=== PATIENT | male | born 1995 | race Caucasian/White ===

== ENCOUNTER 2018-11-03 16:22 | Inpatient (IN) | payer BC, OTHER ==
[~2018-11-03] VITALS: Ht 180.3 cm; Wt 113.0 kg
[2018-11-03] MEDS ORDERED: SOD CHLORIDE 0.9% 1,000 ML IV STA ×2 (17:10→19:03)
[2018-11-03] MEDS ORDERED: ONDANSETRON 4 MG INJ IV STA (17:10)
[2018-11-03] MEDS ORDERED: morphine 2 MG INJ IV STA (17:10)
[2018-11-03] MEDS ORDERED: ONDANSETRON 4 MG INJ IV PRN ×2 (20:30→21:00)
[2018-11-03] MEDS ORDERED: ACETAMINOPHEN 325 MG TAB PO PRN ×3 (20:30→22:30)
[2018-11-03] MEDS: SOD CHLORIDE 0.9% 1,000 ML IV SCH (21:47)
--- NOTE | 2018-11-03 21:53 | ERD ---
ER Documentation Chief Complaint Chief Complaint MULTIPLE SEIZURE WED/WEDNESDAY; SENT BY PMD FOR HIGH CK; C/O AP, NAUSEA HPI Patient is a 23-year-old male with a history of seizures who presents with abdominal pain. He has diffuse abdominal pain and back pain. He denies urinary issues. He has felt constipation recently. He said that he had a seizure this past Wednesday which was his last seizure. He has no history of renal failure but has had decreased intake recently and has had vomiting as well. He does not know the name of his primary doctor. ROS All systems reviewed and are negative except as per history of present illness. Allergies Allergies: Coded Allergies: No Known Allergy (Unverified , 11/03/18) PMhx/Soc History of Surgery: No Anesthesia Reaction: No Hx Neurological Disorder: Yes (Seizure) Hx Respiratory Disorders: No Hx Cardiac Disorders: No Hx Psychiatric Problems: No Hx Miscellaneous Medical Probl: No Hx Alcohol Use: No Hx Substance Use: No Hx Tobacco Use: No Smoking Status: Never smoker FmHx Family History: No diabetes Physical Exam Vitals Vital Signs Date Temp Pulse Resp B/P (MAP) Pulse Ox O2 O2 Flow FiO2 Time Delivery Rate 11/03/18 99.2 70 18 157/100 99 16:29 (119) Physical Exam Const: No acute distress Head: Atraumatic Eyes: Normal Conjunctiva ENT: Normal External Ears, Nose and Mouth. Neck: Full range of motion. No meningismus. Resp: Clear to auscultation bilaterally Cardio: Regular rate and rhythm, no murmurs Abd: Soft, diffuse tenderness to palpation without rebound or guarding Skin: No petechiae or rashes Back: No midline or flank tenderness Ext: No cyanosis, or edema Neur: Awake and alert Psych: Normal Mood and Affect Result Diagram: 11/03/18 1700 11/03/18 1700 Results 24 hrs Laboratory Tests Test 11/03/18 17:00 White Blood Count 8.1 10^3/ul Red Blood Count 4.34 10^6/ul Hemoglobin 12.9 g/dl Hematocrit 37.2 % Mean Corpuscular Volume 85.7 fl Mean Corpuscular Hemoglobin 29.7 pg Mean Corpuscular Hemoglobin Concent 34.7 g/dl Red Cell Distribution Width 11.9 % Platelet Count 234 10^3/UL Mean Platelet Volume 11.1 fl Immature Granulocytes % 0.600 % Neutrophils % 70.4 % Lymphocytes % 16.4 % Monocytes % 10.0 % Eosinophils % 2.1 % Basophils % 0.5 % Nucleated Red Blood Cells % 0.0 /100WBC Immature Granulocytes # 0.050 10^3/ul Neutrophils # 5.7 10^3/ul Lymphocytes # 1.3 10^3/ul Monocytes # 0.8 10^3/ul Eosinophils # 0.2 10^3/ul Basophils # 0.0 10^3/ul Nucleated Red Blood Cells # 0.0 10^3/ul Urine Color STRAW Urine Clarity CLEAR Urine pH 5.0 Urine Specific [place] 1.011 Urine Ketones NEGATIVE mg/dL Urine Nitrite NEGATIVE mg/dL Urine Bilirubin NEGATIVE mg/dL Urine Urobilinogen NEGATIVE mg/dL Urine Leukocyte Esterase NEGATIVE Hugo/ul Urine Microscopic RBC 26 /HPF Urine Microscopic WBC 4 /HPF Urine Bacteria FEW /HPF Urine Hemoglobin 2+ mg/dL Urine Glucose NEGATIVE mg/dL Urine Total Protein NEGATIVE mg/dl Sodium Level 142 mmol/L Potassium Level 4.5 mmol/L Chloride Level 108 mmol/L Carbon Dioxide Level 20 mmol/L Anion Gap 14 Blood Urea Nitrogen 34 mg/dl Creatinine 5.94 mg/dl Est Glomerular Filtrat Rate mL/min 12 mL/min Glucose Level 92 mg/dl Calcium Level 9.4 mg/dl Total Bilirubin 0.2 mg/dl Direct Bilirubin 0.00 mg/dl Indirect Bilirubin 0.2 mg/dl Aspartate Amino Transf (AST/SGOT) 61 IU/L Alanine Aminotransferase (ALT/SGPT) 52 IU/L Alkaline Phosphatase 104 IU/L Creatine Kinase 5932 IU/L Total Protein 7.9 g/dl Albumin 4.4 g/dl Globulin 3.50 g/dl Albumin/Globulin Ratio 1.25 Lipase 44 U/L Current Medications Medications Dose Sig/Mag Start Time Status Last (Trade) Ordered Route PRN Stop Time Admin Dose Reason Admin Sodium 1,000 ml @ Q1H STAT 11/03/18 DC 11/03/18 Chloride 1,000 mls/hr IV 17:10 17:25 11/03/18 18:09 Morphine 2 mg ONCE STAT 11/03/18 DC 11/03/18 Sulfate IV 17:10 17:26 (morphine) 11/03/18 17:13 Ondansetron 4 mg ONCE STAT 11/03/18 DC 11/03/18 HCl (Zofran IV 17:10 17:25 Inj) 11/03/18 17:13 Sodium 1,000 ml @ Q1H STAT 11/03/18 DC 11/03/18 Chloride 1,000 mls/hr IV 19:03 19:20 11/03/18 20:02 Procedures/MDM Patient is a 23-year-old male with a history of seizures who presents with abdo milton pain. The patient was found to have acute rhabdomyolysis with a CK level of 5900. He was found to have acute renal failure with a creatinine of 5.9. The patient will need admission to the hospital. He was given normal saline 1 L bolus. He most likely had multiple seizures leading to rhabdomyolysis which is caused his acute renal failure. Hopefully his creatinine will improve with IV fluid hydration and he will not need dialysis. He has [employer] insurance and I spoke with Dr. Esteban for admission to a medical surgical inpatient bed. Departure Diagnosis: Primary Impression: ARF (acute renal failure) Acute renal failure type: unspecified Qualified Codes: N17.9 - Acute kidney failure, unspecified Additional Impressions: Rhabdomyolysis Rhabdomyolysis type: non-traumatic Qualified Codes: M62.82 - Rhabdomyolys is Abdominal pain Abdominal location: generalized Qualified Codes: R10.84 - Generalized abdominal pain Condition: Serious GERRY RUGGIERO MD Nov 03, 2018 21:53
[2018-11-03 22:07] VITALS: BP 165/78; PULSE 67; RESP 18
[2018-11-03 22:30] VITALS: Ht 180.3 cm; Wt 113.0 kg
[2018-11-03] MEDS ORDERED: morphine 2 MG INJ IV PRN (23:00)
[2018-11-03] MEDS: morphine 2 MG INJ IV PRN (23:08)
[2018-11-03 23:30] VITALS: BP 142/78; PULSE 68; RESP 18
[2018-11-04 02:00] VITALS: BP 138/72; PULSE 72; RESP 18
[2018-11-04] MEDS: SOD CHLORIDE 0.9% 1,000 ML IV SCH ×4 (03:56→19:59)
[2018-11-04 07:51] VITALS: BP 162/86; PULSE 58; RESP 18
[2018-11-04] MEDS: CARBAMAZEPINE 200 MG TAB PO SCH ×2 (08:19→21:07)
[2018-11-04] MEDS: PAROXETINE 20 MG TAB PO SCH (08:19)
[2018-11-04 10:12] VITALS: BP 161/55; PULSE 55
[2018-11-04] MEDS: morphine 2 MG INJ IV PRN (10:49)
--- NOTE | 2018-11-04 11:01 | HP ---
DATE OF ADMISSION: 11/03/2018 CHIEF COMPLAINT: Lower back pain. HOSPITAL COURSE: A 23-year-old male with a history OF seizure disorder, had run out of his Tegretol for 1 week. The patient had multiple episodes of seizure during the weekend prior to admission. He was initially evaluated at [facility] and discharged home with antiepileptics. At that time, creatinine was 1.26. The patient developed diffuse abdominal pain and low back pain. Repeat blood test showed acute kidney injury with a BUN of 34 and creatinine of 5.94. CPK was elevated to 5932. IV fluid hydration was started following admission. Repeat urine and creatinine were 30 and 4.82 and CPK was decreased to 2948. PAST MEDICAL HISTORY: 1. Seizure disorder. 2. Chronic depression. MEDICATIONS PRIOR TO ADMISSION: 1. Tegretol 200 mg p.o. b.i.d. 2. Paxil 40 mg p.o. daily. SOCIAL HISTORY: The patient lives at home. He denies tobacco or alcohol use. He denies illicit estrellita g use. PHYSICAL EXAMINATION: GENERAL: Well-developed, well-nourished, obese male who is in no apparent distress. VITAL SIGNS: Stable. He is afebrile. HEENT: Extraocular muscles intact. Pupils are equal and reactive to light bilaterally. Sclerae are anicteric. Oropharynx is clear and moist. NECK: Supple, no JVD, no carotid bruits. LUNGS: Clear to auscultation bilaterally. CARDIAC: Regular rate and rhythm. No murmurs or gallops. ABDOMEN: Soft. Mild and diffuse tenderness to palpation. No rebound or guarding. Normoactive juan ramon l sounds. EXTREMITIES: No clubbing, cyanosis, or edema. NEUROLOGICAL: Nonfocal. IMAGING: Abdominal ultrasound showed mild hepatomegaly with fatty liver and no evidence of gallstone . CAT scan of the abdomen and pelvis showed no evidence of urolithiasis, obstructive uropathy or div erticulitis. ASSESSMENT: 1. A 23-year-old male with recurrent seizure disorder several days prior to admission. The patient ran out of his antiepileptic therapy x1 week. He must have been down on the ground for several hours . 2. Rhabdomyolysis, slowly improving. 3. Acute kidney injury due to rhabdomyolysis and dehydration, slowly improving. 4. Chronic depression, on Paxil. 5. Noncompliance with medical therapy. PLAN: 1. Admit to med/surg. Continue IV fluid hydration. Resume Tegretol and Paxil. 2. Nephrology consultation was requested. 3. I foresee full recovery of kidney function. 4. Plan of care was discussed with patient and multiple family members. I encouraged him to remain compliant with medical therapy and make sure his medications are refilled on a timely basis. Dictated By: CARLOS SINGH MD SK/NTS Conf#: [id number] DID#: [id number] CC: MATILDA HOPKINS MD; ALYSSA NANCE MD;*EndCC*
--- NOTE | 2018-11-04 11:56 | CONS ---
Assessment/Plan Assessment/Plan Assessment/Plan (Daily) 1. acute kidney injury due to ATN From acute rhabdomyolysis + prerenal azotemia 2. acute Rhabdomyolysis 3. Acute metabolic acidosis due to Rhabdo 4. recurrent breakthrough seizures at home 5. H/o seizure disorder 6. H/O Chronic depression Plan: IVF NS at 125 cc/hr, CK improving Expecting Cr to get better with IVF hydration UA showed 2+ Hb, 26 RBC consistent with Rhabdomyolysis will follow up , thanks for consultation Consultation Date/Type/Reason Admit Date/Time Nov 03, 2018 at 20:04 Date/Time of Note DATE: 11/04/18 TIME: 11:56 Hx of Present Illness 23-year-old male with a history OF seizure disorder, had run out of his Tegretol for 1 week. The patient had multiple episodes of seizure during the weekend prior to admission. He was initially evaluated at [facility] and disc harged home with antiepileptics and Cr of 1.26. ER labs showed acute kidney injury with a BUN of 34 and creatinine of 5.94. CPK was elevated to 5932. BUN/Cr 34/5.94 on admission, CK has been high, HCo3 low- Renal has been consulted for acute renal failure, metabolic acidosis, Acute rhabdomyolysis. Constitutional: poor po Eyes: no complaints ENT: no complaints Respiratory: no complaints Cardiovascular: lightheadedness Gastrointestinal: constipation, decreased appetite, nausea Genitourinary: no complaints Musculoskeletal: no complaints Skin: no complaints Neurologic: no complaints Endocrine: no complaints Lymphatic: no complaints Psychological: no complaints Immunologic: no complaints Past Medical History Medical History: other (depression, seizure disorder ) Medications Current Medications Sodium Chloride 1,000 ml @ 150 mls/hr Q6H40M IV Last administered on 11/04/18at 03:56; Admin Dose 150 MLS/HR; Start 11/03/18 at 21:00 Acetaminophen (Tylenol Tab) 650 mg Q4 PRN PO ELEVATED TEMPERATURE; Start at 21:00 Carbamazepine (Tegretol) 200 mg BID PO Last administered on 11/04/18at 08:19; Admin Dose 200 MG; Start 11/04/18 at 09:00 Paroxetine HCl (Paxil) 40 mg DAILY PO Last administered on 11/04/18at 08:19; Admin Dose 40 MG; Start 11/04/18 at 09:00 Ondansetron HCl (Zofran Inj) 4 mg Q4H PRN IV NAUSEA AND/OR VOMITING; Start 11/03/18 at 22:30 Acetaminophen (Tylenol Tab) 650 mg Q4H PRN PO MILD PAIN(1-3)OR ELEVATED TEMP; Start 11/03/18 at 22:30 Morphine Sulfate (morphine) 1 mg Q3H PRN IV PAIN LEVEL 4-7; Start 11/03/18 at 23:00 Morphine Sulfate (morphine) 4 mg Q3H PRN IV SEVERE PAIN LEVEL 7-10; Start 11/04/18 at 11:30 Allergies: Coded Allergies: No Known Allergy (Unverified , 11/03/18) Past Surgical History Past Surgical Hx: other Family History Significant Family History: no pertinent family hx Social History Alcohol Use: none Smoking Status: Never smoker Drug Use: none Exam/Review of Systems Exam Vitals Vital Signs Date Temp Pulse Resp B/P (MAP) Pulse Ox O2 O2 Flow FiO2 Time Delivery Rate 11/04/18 55 161/55 10:12 (90) 11/04/18 98.3 18 100 07:51 11/04/18 Room Air 02:00 Intake and Output 11/03/18 11/03/18 11/04/18 1515:00 23:00 07:00 IntakeIntake Total 2000 ml 1550 ml BalanceBalance 2000 ml 1550 ml Constitutional: alert Psych: no complaints Head: normocephalic Eyes: nl conjunctiva ENMT: nl external ears & nose Neck: supple Respiratory: clear to auscultation, normal air movement, diminished breath sounds Cardiovascular: regular rate and rhythm, nl pulses Gastrointestinal: soft, non-tender Musculoskeletal: nl extremities to inspection, nl gait and stance, muscle weakness Extremities: normal pulses 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, nl mental status, nl speech, nl strength Skin: nl turgor Lymph: nl lymph nodes Results Result Diagram: 11/04/18 0416 11/04/18 0416 Results 24hrs Laboratory Tests Test 11/03/18 17:00 11/04/18 04:16 White Blood Count 8.1 7.6 Red Blood Count 4.34 L 4.07 L Hemoglobin 12.9 L 11.9 L Hematocrit 37.2 L 35.3 L Mean Corpuscular Volume 85.7 86.7 Mean Corpuscular Hemoglobin 29.7 29.2 Mean Corpuscular Hemoglobin Concent 34.7 33.7 Red Cell Distribution Width 11.9 12.0 Platelet Count 234 200 Mean Platelet Volume 11.1 H 11.0 H Immature Granulocytes % 0.600 H 0.400 Neutrophils % 70.4 62.9 Lymphocytes % 16.4 22.4 Monocytes % 10.0 11.2 H Eosinophils % 2.1 2.6 Basophils % 0.5 0.5 Nucleated Red Blood Cells % 0.0 0.0 Immature Granulocytes # 0.050 H 0.030 Neutrophils # 5.7 4.8 Lymphocytes # 1.3 1.7 Monocytes # 0.8 0.9 Eosinophils # 0.2 0.2 Basophils # 0.0 0.0 Nucleated Red Blood Cells # 0.0 0.0 Urine Color STRAW Urine Clarity CLEAR Urine pH 5.0 Urine Specific [place] 1.011 Urine Ketones NEGATIVE Urine Nitrite NEGATIVE Urine Bilirubin NEGATIVE Urine Urobilinogen NEGATIVE Urine Leukocyte Esterase NEGATIVE Urine Microscopic RBC 26 H Urine Microscopic WBC 4 Urine Bacteria FEW A Urine Hemoglobin 2+ H Urine Glucose NEGATIVE Urine Total Protein NEGATIVE Sodium Level 142 143 Potassium Level 4.5 4.5 Chloride Level 108 114 H Carbon Dioxide Level 20 L 20 L Anion Gap 14 H 9 # Blood Urea Nitrogen 34 H 30 H Creatinine 5.94 H 4.82 #H Est Glomerular Filtrat Rate mL/min 12 L 15 L Glucose Level 92 91 Calcium Level 9.4 8.6 Total Bilirubin 0.2 0.3 Direct Bilirubin 0.00 0.00 Indirect Bilirubin 0.2 0.3 Aspartate Amino Transf (AST/SGOT) 61 H 57 H Alanine Aminotransferase (ALT/SGPT) 52 49 Alkaline Phosphatase 104 83 Creatine Kinase 5932 H 2948 #H Total Protein 7.9 6.8 # Albumin 4.4 3.8 Globulin 3.50 H Albumin/Globulin Ratio 1.25 Lipase 44 Medications Medication Current Medications Sodium Chloride 1,000 ml @ 150 mls/hr Q6H40M IV Last administered on 11/04/18at 03:56; Admin Dose 150 MLS/HR; Start 11/03/18 at 21:00 Acetaminophen (Tylenol Tab) 650 mg Q4 PRN PO ELEVATED TEMPERATURE; Start 11/03/18 at 21:00 Carbamazepine (Tegretol) 200 mg BID PO Last administered on 11/04/18at 08:19; Admin Dose 200 MG; Start 11/04/18 at 09:00 Paroxetine HCl (Paxil) 40 mg DAILY PO Last administered on 11/04/18at 08:19; A dmin Dose 40 MG; Start 11/04/18 at 09:00 Ondansetron HCl (Zofran Inj) 4 mg Q4H PRN IV NAUSEA AND/OR VOMITING; Start 11/03/18 at 22:30 Acetaminophen (Tylenol Tab) 650 mg Q4H PRN PO MILD PAIN(1-3)OR ELEVATED TEMP; Start 11/03/18 at 22:30 Morphine Sulfate (morphine) 1 mg Q3H PRN IV PAIN LEVEL 4-7; Start 11/03/18 at 23:00 Morphine Sulfate (morphine) 4 mg Q3H PRN IV SEVERE PAIN LEVEL 7-10; Start at 11:30 ALYSSA NANCE MD Nov 04, 2018 11:56
[2018-11-04] MEDS ORDERED: hydrALAzine 20 MG INJ IV PRN (12:00)
[2018-11-04] MEDS: morphine 4 MG/ML VIAL IV PRN ×4 (12:01→21:40)
[2018-11-04 14:41] VITALS: BP 131/89; PULSE 69; RESP 18
[2018-11-04] MEDS ORDERED: ZOLPIDEM 5 MG TAB PO PRN (18:30)
[2018-11-04 20:31] VITALS: BP 144/82; PULSE 63; RESP 20
[2018-11-05] VITALS (7 sets, daily range): BP systolic 137–175; BP diastolic 65–82; PULSE 50–77; RESP 16–18
[2018-11-05] MEDS: morphine 4 MG/ML VIAL IV PRN ×6 (00:36→23:12)
[2018-11-05] MEDS: SOD CHLORIDE 0.9% 1,000 ML IV SCH ×3 (04:23→23:12)
[2018-11-05] MEDS: ONDANSETRON 4 MG INJ IV PRN ×4 (04:30→22:54)
[2018-11-05] MEDS: CARBAMAZEPINE 200 MG TAB PO SCH ×2 (08:54→20:17)
[2018-11-05] MEDS: PAROXETINE 20 MG TAB PO SCH (08:55)
--- NOTE | 2018-11-05 11:32 | CONS ---
Assessment/Plan Assessment/Plan Assessment/Plan (Daily) 1. acute kidney injury due to ATN From acute rhabdomyolysis + prerenal azotemia 2. acute Rhabdomyolysis 3. Acute metabolic acidosis due to Rhabdo 4. recurrent breakthrough seizures at home 5. H/o seizure disorder 6. H/O Chronic depression Plan: IVF NS at 125 cc/hr, CK improving - 1218 today Cr trended down to 37/2.45 - better with IVF hydration UA showed 2+ Hb, 26 RBC consistent with Rhabdomyolysis will follow up , thanks for consultation Patient seen in collaboration with Dr Adi Goel Consultation Date/Type/Reason Admit Date/Time Nov 03, 2018 at 20:04 Initial Consult Date Type of Consult NEPHROLOGY Reason for Consultation SARI Date/Time of Note DATE: 11/05/18 TIME: 11:30 24 HR Interval Summary Free Text/Dictation NAD Afebrile feels better Cr trended down to 37/2.45 UO- x1 void as recorded; patient stated he voids well; denies any dysuria Family at bed side- all Qs answered no events overnight dw staff Constitutional: requiring IVF Exam/Review of Systems Exam Vitals Vital Signs Date Temp Pulse Resp B/P (MAP) Pulse Ox O2 O2 Flow FiO2 Time Delivery Rate 11/05/18 97.8 50 18 169/76 98 Room Air 08:58 (107) Intake and Output 11/04/18 11/04/18 11/05/18 1515:00 23:00 07:00 IntakeIntake Total 850 ml 1000 ml 1400 ml BalanceBalance 850 ml 1000 ml 1400 ml Constitutional: alert, oriented, well developed Psych: nl mood/affect Head: normocephalic Eyes: nl lids, nl sclera ENMT: nl external ears & nose Neck: non-tender Respiratory: clear to auscultation Cardiovascular: nl pulses, other (s1s2) Gastrointestinal: soft, non-tender Musculoskeletal: nl extremities to inspection Extremities: normal pulses Neurological: nl speech, other (alert/responsive) Skin: nl turgor Results Result Diagram: 11/04/18 0416 11/05/18 0437 Results 24hrs Laboratory Tests Test 11/05/18 04:36 11/05/18 04:37 Uric Acid 7.4 Sodium Level 144 Potassium Level 4.6 Chloride Level 111 H Carbon Dioxide Level 23 Anion Gap 10 Blood Urea Nitrogen 27 H Creatinine 3.45 #H Est Glomerular Filtrat Rate mL/min 22 L Glucose Level 84 Calcium Level 9.2 Creatine Kinase 1218 #H Creatine Kinase Index 0.0 Creatinine Kinase MB (Mass) 0.60 Troponin I < 0.012 Medications Medication Current Medications Sodium Chloride 1,000 ml @ 125 mls/hr Q8H IV Last administered on 11/05/18 04:23; Admin Dose 125 MLS/HR; Start 11/03/18 at 21:00 Acetaminophen (Tylenol Tab) 650 mg Q4 PRN PO ELEVATED TEMPERATURE; Start 11/03/18 at 21:00 Carbamazepine (Tegretol) 200 mg BID PO Last administered on 11/05/18 08:54; Admin Dose 200 MG; Start 11/04/18 at 09:00 Paroxetine HCl (Paxil) 40 mg DAILY PO Last administered on 11/05/18 08:55; Admin Dose 40 MG; Start 11/04/18 at 09:00 Ondansetron HCl (Zofran Inj) 4 mg Q4H PRN IV NAUSEA AND/OR VOMITING Last administered on 11/05/18 04:30; Admin Dose 4 MG; Start 11/03/18 at 22:30 Acetaminophen (Tylenol Tab) 650 mg Q4H PRN PO MILD PAIN(1-3)OR ELEVATED TEMP; Start 11/03/18 at 22:30 Morphine Sulfate (morphine) 1 mg Q3H PRN IV PAIN LEVEL 4-7; Start 11/03/18 at 23:00 Morphine Sulfate (morphine) 4 mg Q3H PRN IV SEVERE PAIN LEVEL 7-10 Last administered on 11/05/18 04:28; Admin Dose 4 MG; Start 11/04/18 at 11:30 Hydralazine HCl (Apresoline) 10 mg Q4H PRN IV SBP more than 150 mm hg ; Start 11/04/18 at 12:00 Zolpidem Tartrate (Ambien) 5 mg HS PRN PO INSOMNIA; Start 11/04/18 at 18:30 MIHAI MEYER Nov 05, 2018 11:32
--- NOTE | 2018-11-05 11:57 | PN ---
Date/Time of Note Date/Time of Note DATE: 11/05/18 TIME: 11:55 Assessment/Plan VTE Prophylaxis Risk score (from Nsg)>0 risk: 1 SCD applied (from Nsg): Yes Pharmacological prophylaxis: other Lines/Catheters IV Catheter Type (from Nrsg): Peripheral IV Assessment/Plan Assessment/Plan 1. renal: acute renal failure, presumed related to rhabdo and pre-renal, cont ivf, will recheck ua (b) r/o urinary retention, check us 2. seizure disorder, cont current Result Diagram: 11/04/18 0416 11/05/18 0437 Results 24hrs Laboratory Tests Test 11/05/18 04:36 11/05/18 04:37 Uric Acid 7.4 Sodium Level 144 Potassium Level 4.6 Chloride Level 111 H Carbon Dioxide Level 23 Anion Gap 10 Blood Urea Nitrogen 27 H Creatinine 3.45 #H Est Glomerular Filtrat Rate mL/min 22 L Glucose Level 84 Calcium Level 9.2 Creatine Kinase 1218 #H Creatine Kinase Index 0.0 Creatinine Kinase MB (Mass) 0.60 Troponin I < 0.012 Subjective 24 Hr Interval Summary Free Text/Dictation not eating well, no oob Exam/Review of Systems Exam Vitals Vital Signs Date Temp Pulse Resp B/P (MAP) Pulse Ox O2 O2 Flow FiO2 Time Delivery Rate 11/05/18 97.8 50 18 169/76 98 Room Air 08:58 (107) Intake and Output 11/04/18 11/04/18 11/05/18 1515:00 23:00 07:00 IntakeIntake Total 850 ml 1000 ml 1400 ml BalanceBalance 850 ml 1000 ml 1400 ml Exam nad, ctab, rrr, soft tender in suprapubic area Results Results 24hrs Laboratory Tests Test 11/05/18 04:36 11/05/18 04:37 Uric Acid 7.4 Sodium Level 144 Potassium Level 4.6 Chloride Level 111 H Carbon Dioxide Level 23 Anion Gap 10 Blood Urea Nitrogen 27 H Creatinine 3.45 #H Est Glomerular Filtrat Rate mL/min 22 L Glucose Level 84 Calcium Level 9.2 Creatine Kinase 1218 #H Creatine Kinase Index 0.0 Creatinine Kinase MB (Mass) 0.60 Troponin I < 0.012 Medications Medication Current Medications Sodium Chloride 1,000 ml @ 125 mls/hr Q8H IV Last administered on 11/05/18at 04:23; Admin Dose 125 MLS/HR; Start 11/03/18 at 21:00 Acetaminophen (Tylenol Tab) 650 mg Q4 PRN PO ELEVATED TEMPERATURE; Start 11/03/18 at 21:00 Carbamazepine (Tegretol) 200 mg BID PO Last administered on 11/05/18at 08:54; Admin Dose 200 MG; Start 11/04/18 at 09:00 Paroxetine HCl (Paxil) 40 mg DAILY PO Last administered on 11/05/18at 08:55; Admin Dose 40 MG; Start 11/04/18 at 09:00 Ondansetron HCl (Zofran Inj) 4 mg Q4H PRN IV NAUSEA AND/OR VOMITING Last administered on 11/05/18at 04:30; Admin Dose 4 MG; Start 11/03/18 at 22:30 Acetaminophen (Tylenol Tab) 650 mg Q4H PRN PO MILD PAIN(1-3)OR ELEVATED TEMP; Start 11/03/18 at 22:30 Morphine Sulfate (morphine) 1 mg Q3H PRN IV PAIN LEVEL 4-7; Start 11/03/18 at 23:00 Morphine Sulfate (morphine) 4 mg Q3H PRN IV SEVERE PAIN LEVEL 7-10 Last administered on 11/05/18at 11:39; Admin Dose 4 MG; Start 11/04/18 at 11:30 Hydralazine HCl (Apresoline) 10 mg Q4H PRN IV SBP more than 150 mm hg ; Start 11/04/18 at 12:00 Zolpidem Tartrate (Ambien) 5 mg HS PRN PO INSOMNIA; Start 11/04/18 at 18:30 CHANCE ELLSWORTH MD Nov 05, 2018 11:57
[2018-11-06 02:09] VITALS: BP 141/75; PULSE 56; RESP 17
[2018-11-06] MEDS: morphine 4 MG/ML VIAL IV PRN ×5 (03:30→23:58)
[2018-11-06] MEDS: SOD CHLORIDE 0.9% 1,000 ML IV SCH ×2 (07:23→15:49)
[2018-11-06 07:39] VITALS: BP 145/85; PULSE 56; RESP 18
[2018-11-06] MEDS: PAROXETINE 20 MG TAB PO SCH (09:10)
[2018-11-06] MEDS: CARBAMAZEPINE 200 MG TAB PO SCH ×2 (09:10→19:57)
--- NOTE | 2018-11-06 09:49 | CONS ---
Assessment/Plan Assessment/Plan Assessment/Plan (Daily) 1. acute kidney injury due to ATN From acute rhabdomyolysis + prerenal azotemia 2. acute Rhabdomyolysis 3. Acute metabolic acidosis due to Rhabdo 4. recurrent breakthrough seizures at home 5. H/o seizure disorder 6. H/O Chronic depression Plan: IVF NS at 125 cc/hr, CK improving - 1218 today Cr trended down to 26/2.8 - with IVF hydration UO 2.7L/24 Hrs UA showed 2+ Hb, 26 RBC consistent with Rhabdomyolysis will follow up , thanks for consultation Patient seen in collaboration with Dr Adi Goel Consultation Date/Type/Reason Admit Date/Time Nov 03, 2018 at 20:04 Initial Consult Date Type of Consult NEPHROLOGY Date/Time of Note DATE: 11/06/18 TIME: 09:49 24 HR Interval Summary Free Text/Dictation NAD Afebrile feels better UO- 2.7 L/24 hrs Cr trended down to 26/2.85 Family at bed side- all Qs answered no events overnight dw staff Constitutional: requiring IVF Detailed Summary Eyes: no complaints ENT: no complaints Respiratory: no complaints Cardiovascular: no complaints Gastrointestinal: no complaints Genitourinary: no complaints Musculoskeletal: no complaints Skin: no complaints Neurologic: no complaints Endocrine: no complaints Lymphatic: no complaints Psychological: nl mood/affect Immunologic: no complaints Exam/Review of Systems Exam Vitals Vital Signs Date Temp Pulse Resp B/P (MAP) Pulse Ox O2 O2 Flow FiO2 Time Delivery Rate 11/06/18 98.3 56 18 145/85 99 07:39 (105) 11/05/18 Room Air 18:37 Intake and Output 11/05/18 11/05/18 11/06/18 1515:00 23:00 07:00 IntakeIntake Total 1700 ml 1920 ml 1350 ml OutputOutput Total 1600 ml 1100 ml BalanceBalance 1700 ml 320 ml 250 ml Constitutional: alert, oriented, well developed Psych: nl mood/affect Head: normocephalic Eyes: nl lids, nl sclera ENMT: nl external ears & nose Neck: non-tender Respiratory: clear to auscultation Cardiovascular: nl pulses, other (S1S2) Gastrointestinal: soft, non-tender Musculoskeletal: nl extremities to inspection Extremities: normal pulses Neurological: nl mental status, nl speech Skin: nl turgor Lymph: nontender Results Result Diagram: 11/06/18 0430 11/06/18 0430 Results 24hrs Laboratory Tests Test 11/05/18 12:00 11/06/18 04:30 Urine Color COLORLESS Urine Clarity CLEAR Urine pH 5.0 Urine Specific [place] 1.005 Urine Ketones TRACE Urine Nitrite NEGATIVE Urine Bilirubin NEGATIVE Urine Urobilinogen NEGATIVE Urine Leukocyte Esterase NEGATIVE Urine Microscopic RBC 2-5 Urine Squamous Epithelial Cells FEW Urine Bacteria FEW Urine Hemoglobin 2+ H Urine Glucose NEGATIVE Urine Total Protein NEGATIVE White Blood Count 8.4 Red Blood Count 4.17 L Hemoglobin 12.1 L Hematocrit 37.3 L Mean Corpuscular Volume 89.4 Mean Corpuscular Hemoglobin 29.0 Mean Corpuscular Hemoglobin Concent 32.4 Red Cell Distribution Width 12.1 Platelet Count 200 Mean Platelet Volume 10.8 H Immature Granulocytes % 0.500 H Neutrophils % 69.6 Lymphocytes % 18.2 Monocytes % 8.6 Eosinophils % 2.6 Basophils % 0.5 Nucleated Red Blood Cells % 0.0 Immature Granulocytes # 0.040 H Neutrophils # 5.8 Lymphocytes # 1.5 Monocytes # 0.7 Eosinophils # 0.2 Basophils # 0.0 Nucleated Red Blood Cells # 0.0 Sodium Level 142 Potassium Level 4.5 Chloride Level 109 Carbon Dioxide Level 24 Anion Gap 9 Blood Urea Nitrogen 26 H Creatinine 2.85 H Est Glomerular Filtrat Rate mL/min 28 L Glucose Level 92 Calcium Level 9.4 Carbamazepine (Tegretol) Level 8.4 Medications Medication Current Medications Sodium Chloride 1,000 ml @ 125 mls/hr Q8H IV Last administered on 11/06/18at 07:23; Admin Dose 125 MLS/HR; Start 11/03/18 at 21:00 Acetaminophen (Tylenol Tab) 650 mg Q4 PRN PO ELEVATED TEMPERATURE Last administered on 11/06/18 09:12; Admin Dose 650 MG; Start 11/03/18 at 21:00 Carbamazepine (Tegretol) 200 mg BID PO Last administered on 11/06/18 09:10; Admin Dose 200 MG; Start 11/04/18 at 09:00 Paroxetine HCl (Paxil) 40 mg DAILY PO Last administered on 11/06/18 09:10; Admin Dose 40 MG; Start 11/04/18 at 09:00 Ondansetron HCl (Zofran Inj) 4 mg Q4H PRN IV NAUSEA AND/OR VOMITING Last administered on 11/05/18at 22:54; Admin Dose 4 MG; Start 11/03/18 at 22:30 Acetaminophen (Tylenol Tab) 650 mg Q4H PRN PO MILD PAIN(1-3)OR ELEVATED TEMP; Start 11/03/18 at 22:30 Morphine Sulfate (morphine) 1 mg Q3H PRN IV PAIN LEVEL 4-7; Start 11/03/18 at 23:00 Morphine Sulfate (morphine) 4 mg Q3H PRN IV SEVERE PAIN LEVEL 7-10 Last administered on 11/06/18at 03:30; Admin Dose 4 MG; Start 11/04/18 at 11:30 Hydralazine HCl (Apresoline) 10 mg Q4H PRN IV SBP more than 150 mm hg Last administered on 11/05/18at 17:27; Admin Dose 10 MG; Start 11/04/18 at 12:00 Zolpidem Tartrate (Ambien) 5 mg HS PRN PO INSOMNIA; Start 11/04/18 at 18:30 MIHAI MEYER Nov 06, 2018 09:49
[2018-11-06] MEDS: ONDANSETRON 4 MG INJ IV PRN ×2 (10:12→20:01)
--- NOTE | 2018-11-06 12:26 | PN ---
Date/Time of Note Date/Time of Note DATE: 11/06/18 TIME: 12:23 Assessment/Plan VTE Prophylaxis Risk score (from Ns)>0 risk: 1 SCD applied (from Ns): Yes Pharmacological prophylaxis: NA/contraindicated Pharm contraindication: surgical contra, other Lines/Catheters IV Catheter Type (from Nrs): Peripheral IV Urinary Cath still in place: No Assessment/Plan Assessment/Plan 1. acute renal failure, resolving, cont to observe, anticipate d./c q1-2 days 2. seizure disorder, therapeutic carbamazepine level Result Diagram: 11/06/1842911/06/18429 Results 24hrs Laboratory Tests Test 11/06/18 04:30 White Blood Count 8.4 Red Blood Count 4.17 L Hemoglobin 12.1 L Hematocrit 37.3 L Mean Corpuscular Volume 89.4 Mean Corpuscular Hemoglobin 29.0 Mean Corpuscular Hemoglobin Concent 32.4 Red Cell Distribution Width 12.1 Platelet Count 200 Mean Platelet Volume 10.8 H Immature Granulocytes % 0.500 H Neutrophils % 69.6 Lymphocytes % 18.2 Monocytes % 8.6 Eosinophils % 2.6 Basophils % 0.5 Nucleated Red Blood Cells % 0.0 Immature Granulocytes # 0.040 H Neutrophils # 5.8 Lymphocytes # 1.5 Monocytes # 0.7 Eosinophils # 0.2 Basophils # 0.0 Nucleated Red Blood Cells # 0.0 Sodium Level 142 Potassium Level 4.5 Chloride Level 109 Carbon Dioxide Level 24 Anion Gap 9 Blood Urea Nitrogen 26 H Creatinine 2.85 H Est Glomerular Filtrat Rate mL/min 28 L Glucose Level 92 Calcium Level 9.4 Carbamazepine (Tegretol) Level 8.4 Subjective 24 Hr Interval Summary Free Text/Dictation some pain at injection sites ambulating to toilet, none in hallways Exam/Review of Systems Exam Vitals Vital Signs Date Temp Pulse Resp B/P (MAP) Pulse Ox O2 O2 Flow FiO2 Time Delivery Rate 11/06/18 98.3 56 18 145/85 99 07:39 (105) 11/05/18 Room Air 18:37 Intake and Output 11/05/18 11/05/18 11/06/18 1515:00 23:00 07:00 IntakeIntake Total 1700 ml 1920 ml 1350 ml OutputOutput Total 1600 ml 1100 ml BalanceBalance 1700 ml 320 ml 250 ml Exam nad ctab, nmin tenderness Results Results 24hrs Laboratory Tests Test 11/06/18 04:30 White Blood Count 8.4 Red Blood Count 4.17 L Hemoglobin 12.1 L Hematocrit 37.3 L Mean Corpuscular Volume 89.4 Mean Corpuscular Hemoglobin 29.0 Mean Corpuscular Hemoglobin Concent 32.4 Red Cell Distribution Width 12.1 Platelet Count 200 Mean Platelet Volume 10.8 H Immature Granulocytes % 0.500 H Neutrophils % 69.6 Lymphocytes % 18.2 Monocytes % 8.6 Eosinophils % 2.6 Basophils % 0.5 Nucleated Red Blood Cells % 0.0 Immature Granulocytes # 0.040 H Neutrophils # 5.8 Lymphocytes # 1.5 Monocytes # 0.7 Eosinophils # 0.2 Basophils # 0.0 Nucleated Red Blood Cells # 0.0 Sodium Level 142 Potassium Level 4.5 Chloride Level 109 Carbon Dioxide Level 24 Anion Gap 9 Blood Urea Nitrogen 26 H Creatinine 2.85 H Est Glomerular Filtrat Rate mL/min 28 L Glucose Level 92 Calcium Level 9.4 Carbamazepine (Tegretol) Level 8.4 Medications Medication Current Medications Sodium Chloride 1,000 ml @ 125 mls/hr Q8H IV Last administered on 11/06/18 07:23; Admin Dose 125 MLS/HR; Start 11/03/18 at 21:00 Acetaminophen (Tylenol Tab) 650 mg Q4 PRN PO ELEVATED TEMPERATURE Last administered on 11/06/18 09:12; Admin Dose 650 MG; Start 11/03/18 at 21:00 Carbamazepine (Tegretol) 200 mg BID PO Last administered on 11/06/18 09:10; Admin Dose 200 MG; Start 11/04/18 at 09:00 Paroxetine HCl (Paxil) 40 mg DAILY PO Last administered on 11/06/18 09:10; Admin Dose 40 MG; Start 11/04/18 at 09:00 Ondansetron HCl (Zofran Inj) 4 mg Q4H PRN IV NAUSEA AND/OR VOMITING Last administered on 11/06/18 10:12; Admin Dose 4 MG; Start 11/03/18 at 22:30 Acetaminophen (Tylenol Tab) 650 mg Q4H PRN PO MILD PAIN(1-3)OR ELEVATED TEMP; Start 11/03/18 at 22:30 Morphine Sulfate (morphine) 1 mg Q3H PRN IV PAIN LEVEL 4-7; Start 11/03/18 at 23:00 Morphine Sulfate (morphine) 4 mg Q3H PRN IV SEVERE PAIN LEVEL 7-10 Last administered on 11/06/18at 10:12; Admin Dose 4 MG; Start 11/04/18 at 11:30 Hydralazine HCl (Apresoline) 10 mg Q4H PRN IV SBP more than 150 mm hg Last administered on 11/05/18at 17:27; Admin Dose 10 MG; Start 11/04/18 at 12:00 Zolpidem Tartrate (Ambien) 5 mg HS PRN PO INSOMNIA; Start 11/04/18 at 18:30 CHANCE ELLSWORTH MD Nov 06, 2018 12:25
[2018-11-06 14:07] VITALS: BP 148/67; PULSE 76; RESP 18
[2018-11-06 20:57] VITALS: BP 141/83; PULSE 78; RESP 18
[2018-11-07 01:54] VITALS: BP 137/73; PULSE 61; RESP 18
[2018-11-07 07:39] VITALS: BP 126/77; PULSE 74; RESP 18
[2018-11-07] MEDS: PAROXETINE 20 MG TAB PO SCH (09:08)
[2018-11-07] MEDS: CARBAMAZEPINE 200 MG TAB PO SCH (09:08)
[2018-11-07] MEDS ORDERED: PARO-37 PO (10:45)
[2018-11-07] MEDS ORDERED: CARB200T3 PO (10:45)
--- NOTE | 2018-11-07 10:46 | PDOCDIS ---
Discharge Instructions CONDITION [id number] Patient Condition: [id number] Good HOME CARE INSTRUCTIONS: [id number] Diet Instructions: [id number] Regular ACTIVITY: [id number] Activity Restrictions: [id number] No Restrictions FOLLOW UP/APPOINTMENTS Follow-up Plan pcp [address] Goel 1 week CARLOS SINGH MD Nov 07, 2018 10:46
[2018-11-07] MEDS: ONDANSETRON 4 MG INJ IV PRN (10:54)
--- NOTE | 2018-11-07 11:46 | CONS ---
Assessment/Plan Assessment/Plan Assessment/Plan (Daily) 1. acute kidney injury due to ATN From acute rhabdomyolysis + prerenal azotemia 2. acute Rhabdomyolysis 3. Acute metabolic acidosis due to Rhabdo 4. recurrent breakthrough seizures at home 5. H/o seizure disorder 6. H/O Chronic depression Plan: BUn/Cr improved to 22/2.33, BP stable, K normal, ok to d/c follow up with me in clinic in 1-2 week after d/ c Consultation Date/Type/Reason Admit Date/Time Nov 03, 2018 at 20:04 Initial Consult Date Date/Time of Note DATE: 11/07/18 TIME: 11:45 Exam/Review of Systems Exam Vitals Vital Signs Date Temp Pulse Resp B/P (MAP) Pulse Ox O2 O2 Flow FiO2 Time Delivery Rate 11/07/18 98.0 74 18 126/77 96 Room Air 07:39 (93) Intake and Output 11/06/18 11/06/18 11/07/18 1515:00 23:00 07:00 IntakeIntake Total 250 ml 1200 ml 1000 ml OutputOutput Total 200 ml 200 ml BalanceBalance 50 ml 1000 ml 1000 ml Results Result Diagram: 11/06/18 0430 11/07/18 0421 Results 24hrs Laboratory Tests Test 11/07/18 04:21 Sodium Level 143 Potassium Level 4.4 Chloride Level 106 Carbon Dioxide Level 25 Anion Gap 12 Blood Urea Nitrogen 22 H Creatinine 2.33 H Est Glomerular Filtrat Rate mL/min 35 L Glucose Level 98 Calcium Level 9.8 Medications Medication Current Medications Acetaminophen (Tylenol Tab) 650 mg Q4 PRN PO ELEVATED TEMPERATURE Last administered on 11/06/18at 09:12; Admin Dose 650 MG; Start 11/03/18 at 21:00 Carbamazepine (Tegretol) 200 mg BID PO Last administered on 11/07/18at 09:08; Admin Dose 200 MG; Start 11/04/18 at 09:00 Paroxetine HCl (Paxil) 40 mg DAILY PO Last administered on 11/07/18at 09:08; Admin Dose 40 MG; Start 11/04/18 at 09:00 Ondansetron HCl (Zofran Inj) 4 mg Q4H PRN IV NAUSEA AND/OR VOMITING Last administered on 11/07/18at 10:54; Admin Dose 4 MG; Start 11/03/18 at 22:30 Acetaminophen (Tylenol Tab) 650 mg Q4H PRN PO MILD PAIN(1-3)OR ELEVATED TEMP; Start 11/03/18 at 22:30 Morphine Sulfate (morphine) 1 mg Q3H PRN IV PAIN LEVEL 4-7; Start 11/03/18 at 23:00 Morphine Sulfate (morphine) 4 mg Q3H PRN IV SEVERE PAIN LEVEL 7-10 Last administered on 11/06/18at 23:58; Admin Dose 4 MG; Start 11/04/18 at 11:30 Hydralazine HCl (Apresoline) 10 mg Q4H PRN IV SBP more than 150 mm hg Last administered on 11/05/18at 17:27; Admin Dose 10 MG; Start 11/04/18 at 12:00 Zolpidem Tartrate (Ambien) 5 mg HS PRN PO INSOMNIA; Start 11/04/18 at 18:30 ALYSSA NANCE MD Nov 07, 2018 11:45
[2018-11-07 15:30] VITALS: BP 130/89; PULSE 77; RESP 18
--- NOTE | 2018-11-07 17:08 | DS ---
DATE OF ADMISSION: 11/03/2018 DATE OF DISCHARGE: 11/07/2018 DISCHARGE DIAGNOSES: 1. a 23-year-old male with acute on chronic kidney injury. 2. Stage III chronic kidney disease. 3. Rhabdomyolysis. 4. Recurrent Seizure disorder due to medication noncompliance. 5. Chronic depression. HOSPITAL COURSE: A 23-year-old male with a long history of seizure disorder, on Tegretol, presented to emergency room with complaint of low back pain and abdominal discomfort. The patient was diagnos ed with acute kidney injury and rhabdomyolysis. The patient had multiple episodes of seizures the we ekend prior to admission. He was previously on Tegretol and ran out of his medication for 1 week. T he patient failed to refill his medication which led to recurrent seizures. Initial evaluation revea led a creatinine kinase of 5900 with a BUN of 34 and creatinine of 5.94. The patient received IV flu id hydration for 4 days. BUN and creatinine improved to 22 and 2.33. I believe there is a component of chronic kidney disease. The patient is in a stable condition for discharge. He was encouraged t o increase fluid intake. I gave him prescriptions for Tegretol and paroxetine Patient will follow up with PCP and Dr. Nance as outpatient. Renal function needs to be monitored as an outpatient. MEDICATIONS ON DISCHARGE: 1. Tegretol 200 mg p.o. b.i.d. 2. Paroxetine 40 mg p.o. daily. FOLLOWUP: 1. Follow up with PCP in 1 week. 2. Follow up with Dr. Nance, in 1 week. Dictated By: CARLOS FERRER/ABHISHEK Conf#: [id number] DID#: [id number] CC: MATILDA HOPKINS MD; ALYSSA NANCE MD;*EndCC*
[2018-11-08] MEDS ORDERED: ONDA8TAB83 PO (04:32)
[2018-11-08] MEDS ORDERED: NAPR-688 PO (04:32)
== END 2018-11-07 15:30 | disposition home or self-care (01) | DRG 100 ==
LOC: FTE 16:22 → MS1 20:04
PROVIDERS: ADMIT Internal Medicine; ATTEND Internal Medicine
DX: G40.909 Epilepsy, unspecified, not intractable, without status epilepticus (principal); N17.0 Acute kidney failure with tubular necrosis; M62.82 Rhabdomyolysis; E87.2 Acidosis; E66.9 Obesity, unspecified; Z68.34 Body mass index [BMI] 34.0-34.9, adult; F32.9 Major depressive disorder, single episode, unspecified; N18.3 Chronic kidney disease, stage 3 (moderate); Z91.14 Patient's other noncompliance with medication regimen
CPT/HCPCS: 36415; 74176; 76705; 76775; 80048; 80053; 80076; 80156; 81001; 82550; 82553; 83690; 84484; 84560; 85025; 96361; 96374; 96375; J0360; J2270; J2405; J7030

== ENCOUNTER 2018-11-08 00:12 | Emergency (ER) | payer OTHER ==
[~2018-11-08] VITALS: Ht 180.3 cm; Wt 111.7 kg
[~2018-11-08 00:12] MED LIST: CARB200T3 PO; PARO-37 PO
[2018-11-08 00:17] VITALS: Ht 180.3 cm; Wt 111.7 kg
[2018-11-08] MEDS ORDERED: morphine 4 MG/ML VIAL IV STA (01:26)
[2018-11-08] MEDS ORDERED: ONDANSETRON 4 MG INJ IV STA (01:26)
[2018-11-08] MEDS ORDERED: SOD CHLORIDE 0.9% 1,000 ML IV STA (01:26)
[2018-11-08] MEDS ORDERED: LORAZEPAM 2 MG INJ IV ONE (03:00)
[2018-11-08] MEDS ORDERED: NAPR-688 PO (04:32)
[2018-11-08] MEDS ORDERED: ONDA8TAB83 PO (04:32)
--- NOTE | 2018-11-08 05:44 | ERD ---
ER Documentation Chief Complaint Chief Complaint BILAT KIDNEY PAIN. D/C'D YESTERDAY S/P ADMIT FOR KIDNEY PAIN HPI This is a 22-year-old male comes in because of bilateral kidney failure. Discharged yesterday for rhabdo. Denies fevers chills nausea vomiting. Denies any other current complaints. ROS All systems reviewed and are negative except as per history of present illness. Medications Home Meds Active Scripts Paroxetine Hcl* (Paroxetine*) 20 Mg Tablet, 40 MG PO DAILY for 30 Days, TAB 3 Refills Prov:CARLOS SINGH MD 11/07/18 Carbamazepine (Carbamazepine) 200 Mg Tablet, 200 MG PO BID for 30 Days, TAB 3 Refills Prov:CARLOS SINGH MD 11/07/18 Reported Medications Naproxen* (Naproxen*) 500 Mg Tablet, 500 MG PO Q6H PRN for PAIN 11/08/18 Ondansetron Hcl* (Ondansetron Hcl*) 8 Mg Tablet, 8 MG PO 11/08/18 Allergies Allergies: Coded Allergies: No Known Allergy (Unverified , 11/08/18) PMhx/Soc History of Surgery: No Anesthesia Reaction: No Hx Neurological Disorder: Yes (epilepsy) Hx Respiratory Disorders: No Hx Cardiac Disorders: No Hx Psychiatric Problems: Yes (depression) Hx Miscellaneous Medical Probl: Yes (acute renal failure,rhabdo) Hx Alcohol Use: No Hx Substance Use: No Hx Tobacco Use: No Smoking Status: Never smoker Physical Exam Vitals Vital Signs Date Temp Pulse Resp B/P (MAP) Pulse Ox O2 O2 Flow FiO2 Time Delivery Rate 11/08/18 66 14 151/84 100 Nasal 2.0 04:06 (106) Cannula 11/08/18 70 12 148/92 98 Room Air 02:00 (110) 11/08/18 98.3 65 18 175/88 98 00:17 (117) Physical Exam Const: No acute distress Head: Atraumatic Eyes: Normal Conjunctiva ENT: Normal External Ears, Nose and Mouth. Neck: Full range of motion. No meningismus. Resp: Clear to auscultation bilaterally Cardio: Regular rate and rhythm, no murmurs Abd: Soft, non tender, non distended. Normal bowel sounds Skin: No petechiae or rashes Back: No midline or flank tenderness Ext: No cyanosis, or edema Neur: Awake and alert Psych: Normal Mood and Affect Result Diagram: 11/08/18 0133 11/08/18 0133 Results 24 hrs Laboratory Tests Test 11/08/18 01:33 White Blood Count 9.4 10^3/ul Red Blood Count 4.68 10^6/ul Hemoglobin 13.8 g/dl Hematocrit 41.1 % Mean Corpuscular Volume 87.8 fl Mean Corpuscular Hemoglobin 29.5 pg Mean Corpuscular Hemoglobin Concent 33.6 g/dl Red Cell Distribution Width 11.9 % Platelet Count 230 10^3/UL Mean Platelet Volume 10.7 fl Immature Granulocytes % 0.500 % Neutrophils % 67.9 % Lymphocytes % 21.1 % Monocytes % 7.5 % Eosinophils % 2.6 % Basophils % 0.4 % Nucleated Red Blood Cells % 0.0 /100WBC Immature Granulocytes # 0.050 10^3/ul Neutrophils # 6.4 10^3/ul Lymphocytes # 2.0 10^3/ul Monocytes # 0.7 10^3/ul Eosinophils # 0.3 10^3/ul Basophils # 0.0 10^3/ul Nucleated Red Blood Cells # 0.0 10^3/ul Urine Color YELLOW Urine Clarity CLEAR Urine pH 5.0 Urine Specific [place] 1.014 Urine Ketones NEGATIVE mg/dL Urine Nitrite NEGATIVE mg/dL Urine Bilirubin NEGATIVE mg/dL Urine Urobilinogen NEGATIVE mg/dL Urine Leukocyte Esterase NEGATIVE Hugo/ul Urine Microscopic RBC 6 /HPF Urine Microscopic WBC 7 /HPF Urine Hemoglobin 2+ mg/dL Urine Glucose NEGATIVE mg/dL Urine Total Protein 1+ mg/dl Sodium Level 141 mmol/L Potassium Level 3.9 mmol/L Chloride Level 102 mmol/L Carbon Dioxide Level 23 mmol/L Anion Gap 16 Blood Urea Nitrogen 23 mg/dl Creatinine 2.21 mg/dl Est Glomerular Filtrat Rate mL/min 37 mL/min Glucose Level 103 mg/dl Calcium Level 10.2 mg/dl Total Bilirubin 0.4 mg/dl Direct Bilirubin 0.00 mg/dl Indirect Bilirubin 0.4 mg/dl Aspartate Amino Transf (AST/SGOT) 34 IU/L Alanine Aminotransferase (ALT/SGPT) 59 IU/L Alkaline Phosphatase 164 IU/L Total Protein 8.8 g/dl Albumin 4.9 g/dl Globulin 3.90 g/dl Albumin/Globulin Ratio 1.25 Lipase 68 U/L Carbamazepine (Tegretol) Level 11.0 ug/ml Current Medications Medications Dose Sig/Mag Start Time Status Last (Trade) Ordered Route PRN Stop Time Admin Dose Reason Admin Sodium 1,000 ml @ Q1H STAT 11/08/18 DC 11/08/18 Chloride 1,000 mls/hr IV 01:26 01:51 11/08/18 02:25 Morphine 4 mg ONCE STAT 11/08/18 DC 11/08/18 Sulfate IV 01:26 01:51 (morphine) 11/08/18 01:27 Ondansetron 4 mg ONCE STAT 11/08/18 DC 11/08/18 HCl (Zofran IV 01:26 01:51 Inj) 11/08/18 01:27 Lorazepam 1 mg ONCE ONCE 11/08/18 DC 11/08/18 (Ativan) IV 03:00 02:49 11/08/18 03:01 Procedures/MDM Emergency department course: Patient seen and evaluated. Placed in bed. Had blood work done. During his stay in the ER patient had a seizure. Patient does have history of seizures. Patient was given Ativan. Serial exams remained stable. Medical decision makin-year-old male with resolving rhabdomyolysis. Given his renal function improving if the patient stable for outpatient management is asked to follow-up with his primary care physician to which sugars Departure Diagnosis: Primary Impression: Rhabdomyolysis Rhabdomyolysis type: traumatic Encounter type: subsequent encounter Qualified Codes: T79.6XXD - Traumatic ischemia of muscle, subsequent encounter Condition: Stable TORI BOOTHE Nov 08, 2018 05:44
[2018-11-08 07:40] VITALS: BP 134/67; PULSE 66; RESP 18
== END 2018-11-08 07:30 | disposition home or self-care (01) ==
LOC: E/R 00:12
DX: T79.6XXD Traumatic ischemia of muscle, subsequent encounter (principal); R40.2142 Coma scale, eyes open, spontaneous, at arrival to emergency department; R40.2252 Coma scale, best verbal response, oriented, at arrival to emergency department; R40.2362 Coma scale, best motor response, obeys commands, at arrival to emergency department; N17.9 Acute kidney failure, unspecified
CPT/HCPCS: 36415; 80053; 80156; 81001; 82550; 83690; 85025; 96361; 96374; 96375; J2060; J2270; J2405; J7030; Z7502